=== PATIENT | female | born 1965 | race Caucasian/White ===

== ENCOUNTER → 2018-12-09 | Outpatient (CLI) | payer OTHER | LOC: SLEEP 20:05 | PROVIDERS: ATTEND Otolaryngology | DX: G47.33 Obstructive sleep apnea (adult) (pediatric) (principal) | CPT/HCPCS: 95806 ==

== ENCOUNTER → 2019-01-06 | Outpatient (CLI) | payer OTHER ==
--- NOTE | 2019-01-12 16:22 | Polysomnography ---
DATE OF STUDY: 01/06/2019 REFERRING PHYSICIAN: Dr. Andre Kern INTERPRETATION FOR CPAP TITRATION POLYSOMNOGRAPHY. IMPRESSION: 1. Significant response to CPAP titration at 12 cm of H20 pressure which resulted in significant reduction of respiratory distress index. 2. Snoring was resolved at ending pressure. RECOMMENDATIONS: 1. CPAP pressure at 12 cm of water pressure with heated humidifier. 2. Avoid consumption of alcohol or sedative before bedtime. 3. Weight reduction to ideal body weight. 4. Advise the patient that excessive daytime sleepiness could pose a danger to the patient and others while driving or operating heavy machinery and to use caution until symptoms are treated and improved. 5. The patient to follow up with physician to discuss results of study. Andre Kern MD JKY/MODL /[id number] MTDD
== END ==
LOC: SLEEP 20:07
PROVIDERS: ATTEND Otolaryngology
DX: G47.33 Obstructive sleep apnea (adult) (pediatric) (principal)
CPT/HCPCS: 95811